=== PATIENT | male | born 1955 | race Caucasian/White ===

== ENCOUNTER 2018-01-17 09:38 | Emergency (ER) | payer BC ==
[~2018-01-17] VITALS: Ht 182.9 cm; Wt 112.8 kg
[~2018-01-17 09:38] MED LIST: LOTREL 5/101 CAPSULE PO; NEXIUM20 MG PO; PERCOCET 5/31 TABLET PO; ZOFRAN ODT4 MG PO
[2018-01-17 10:01] LABS: HEMATOCRIT 48.6 % (38.0-50.0); MCH 27.2 PG (29.0-34.0); MCHC 32.9 G/DL (30.0-36.0); MCV 82.7 FL (86-99); PLATELET COUNT 325 K/uL (156-360); RBC DIS.WIDTH-CV 14.3 % (11.8-14.6); RBC DIS.WIDTH-SD 42.8 % (39-53); RED BLOOD COUNT 5.88 M/uL (4.00-5.50); WHITE BLOOD COUNT 11.7 K/uL (4.1-10.2)
[2018-01-17 10:10] LABS: ALBUMIN 3.8 g/dL (3.2-4.8); CHLORIDE 102 mEq/L (99-109); POTASSIUM 4.7 mEq/L (3.7-5.4); SODIUM 140 mEq/L (136-147)
[2018-01-17 10:12] LABS: GLUCOSE 110 mg/dL (70-99)
[2018-01-17 10:14] LABS: TOTAL BILIRUBIN 0.7 mg/dL (0.0-1.0)
[2018-01-17 10:16] LABS: ALKALINE PHOSPHATASE 72 IU/L (3-129); CREATININE 1.4 mg/dL (0.6-1.3); GFR ESTIMATE (CALCULATED) 55 mL/min/ (58.99-99999)
[2018-01-17 10:17] LABS: UREA NITROGEN (BUN) 18 mg/dL (9-23)
[2018-01-17 10:18] LABS: AST (GOT) 18 IU/L (2-34)
[2018-01-17 10:19] LABS: ALT (GPT) 24 IU/L (3-49)
[2018-01-17 11:37] LABS: APPEARANCE CLOUDY ((CLEAR)); BILIRUBIN NEGATIVE; BLOOD NEGATIVE; COLOR AMBER ((YELLOW)); GLUCOSE (STRIP) NEGATIVE; KETONES NEGATIVE; LEUKOCYTES NEGATIVE; NITRITE NEGATIVE; PROTEIN (STRIP) 100; SPECIFIC GRAVITY 1.033 (1.000-1.030)
[2018-01-17 11:42] LABS: LIPASE 23 U/L (1.0-51.0)
[2018-01-17 11:47] LABS: TROP-I INTERPRETATION NEGATIVE; TROPONIN-I < 0.01 ng/mL (0.0-0.30)
[2018-01-17 12:00] LABS: EPITHELIAL CELLS RARE /HPF; MUCUS NONE SEEN /LPF; RED BLOOD CELLS NONE SEEN /HPF (0-5); WHITE BLOOD CELLS NONE SEEN /HPF (0-5)
[2018-01-17 12:01] LABS: BACTERIA RARE /HPF; UCUL ADDED? NO
[2018-01-17 15:55] VITALS: BP 127/92
== END 2018-01-17 15:58 | disposition home or self-care (01) ==
LOC: EME 09:38
DX: C22.9 Malignant neoplasm of liver, not specified as primary or secondary (principal); C78.6 Secondary malignant neoplasm of retroperitoneum and peritoneum; K76.9 Liver disease, unspecified; N40.0 Benign prostatic hyperplasia without lower urinary tract symptoms; R18.8 Other ascites; K21.9 Gastro-esophageal reflux disease without esophagitis; I10 Essential (primary) hypertension; F17.200 Nicotine dependence, unspecified, uncomplicated
CPT/HCPCS: 71046; 74177; 80053; 81003; 83605; 83690; 84484; 85027; 93005; 99281; 99285

== ENCOUNTER 2018-01-20 22:46 | Inpatient (IN) | payer BC ==
[~2018-01-20] VITALS: Ht 182.9 cm; Wt 114.2 kg
[2018-01-20 23:06] LABS: HEMOGLOBIN 16.6 G/DL (12.5-16.6); MCH 27.3 PG (29.0-34.0); MCHC 33.9 G/DL (30.0-36.0); MCV 80.6 FL (86-99); PLATELET COUNT 421 K/uL (156-360); RBC DIS.WIDTH-CV 14.1 % (11.8-14.6); RBC DIS.WIDTH-SD 40.9 % (39-53); RED BLOOD COUNT 6.08 M/uL (4.00-5.50); WHITE BLOOD COUNT 14.8 K/uL (4.1-10.2)
[2018-01-20 23:31] LABS: ALBUMIN 3.6 g/dL (3.2-4.8); CHLORIDE 101 mEq/L (99-109); SODIUM 139 mEq/L (136-147)
[2018-01-20 23:33] LABS: GLUCOSE 129 mg/dL (70-99)
[2018-01-20 23:35] LABS: TOTAL BILIRUBIN 0.8 mg/dL (0.0-1.0)
[2018-01-20 23:37] LABS: ALKALINE PHOSPHATASE 79 IU/L (3-129); CREATININE 1.1 mg/dL (0.6-1.3); GFR ESTIMATE (CALCULATED) > 59 mL/min/ (58.99-99999)
[2018-01-20 23:38] LABS: UREA NITROGEN (BUN) 16 mg/dL (9-23)
[2018-01-20 23:39] LABS: AST (GOT) 31 IU/L (2-34)
[2018-01-20 23:40] LABS: ALT (GPT) 33 IU/L (3-49)
[2018-01-21] VITALS (7 sets, daily range): BP systolic 124–144; BP diastolic 77–93
[2018-01-21 08:14] LABS: HEMATOCRIT 45.7 % (38.0-50.0); MCH 26.9 PG (29.0-34.0); MCHC 32.8 G/DL (30.0-36.0); MCV 81.9 FL (86-99); PLATELET COUNT 373 K/uL (156-360); RBC DIS.WIDTH-CV 14.3 % (11.8-14.6); RBC DIS.WIDTH-SD 42.6 % (39-53); RED BLOOD COUNT 5.58 M/uL (4.00-5.50); WHITE BLOOD COUNT 12.3 K/uL (4.1-10.2)
[2018-01-22 06:27] LABS: BASOPHIL (%) 0.5 % (0-1); BASOPHIL COUNT 0.1 K/uL (0-0.1); EOSINOPHIL (%) 0.7 % (0-5); EOSINOPHIL COUNT 0.1 K/uL (0-0.3); HEMOGLOBIN 14.7 G/DL (12.5-16.6); IMMATURE GRANULOCYTE (%) 0.8 % (0.0-0.7); LYMPHOCYTE COUNT 0.8 K/uL (1.0-2.8); MCH 27.3 PG (29.0-34.0); MCHC 33.4 G/DL (30.0-36.0); MCV 81.6 FL (86-99); MONOCYTE (%) 9.2 % (3-12); NEUTROPHIL (%) 81.8 % (45-76); NEUTROPHIL COUNT 9.2 K/uL (1.8-6.4); PLATELET COUNT 352 K/uL (156-360); RBC DIS.WIDTH-CV 14.3 % (11.8-14.6); RBC DIS.WIDTH-SD 41.5 % (39-53); RED BLOOD COUNT 5.39 M/uL (4.00-5.50); WHITE BLOOD COUNT 11.2 K/uL (4.1-10.2)
[2018-01-22 06:34] LABS: INTER. NORMALIZED RATIO 1.2
[2018-01-22 06:37] LABS: PTT 27.8 SEC (25-37)
[2018-01-22 06:56] LABS: CHLORIDE 101 MEQ/L (99-109); CREATININE 0.9 MG/DL (0.6-1.3); GFR ESTIMATE (CALCULATED) > 59 mL/min/ (58.99-99999); GLUCOSE 113 mg/dL (70-99); POTASSIUM 4.2 MEQ/L (3.7-5.4); SODIUM 137 MEQ/L (136-147); UREA NITROGEN (BUN) 16 mg/dL (9-23)
[2018-01-22 07:55] VITALS: BP 136/80
[2018-01-22 10:39] LABS: TYPE OF FLUID PARACENTESIS
[2018-01-22 11:11] LABS: APPEARANCE SL. HAZY-YELLOW; BODY FLUID RBC'S 4000 /MM^3 (0-100); BODY FLUID WBC'S 1388 /MM^3 (0-500)
[2018-01-22 11:25] LABS: BODY FLUID GLUCOSE 83 MG/DL; BODY FLUID LDH 725 IU/L
[2018-01-22 12:06] LABS: BODY FLUID EOSINOPHILS 0 % (0-25); MONONUCLEAR WBC'S 82 %; POLYNUCLEAR WBC'S 18 % (0-25)
[2018-01-22 13:23] VITALS: BP 125/63
[2018-01-22 23:12] VITALS: BP 138/79
[2018-01-23 07:10] VITALS: BP 120/82
[2018-01-23 07:12] VITALS: BP 120/82
[2018-01-23 11:05] VITALS: BP 120/74
[2018-01-23] MEDS ORDERED: Chronulac,Cephulac,E PO (12:10)
[2018-01-23 15:45] VITALS: BP 123/82
== END 2018-01-23 17:30 | disposition home health service (06) | DRG 436 ==
LOC: EME 22:46 → EDOF 01-21 01:01 → 5EAST 01-21 01:01 → ENRESERV 01-21 01:04 → 5EAST 01-21 02:37
PROVIDERS: Hospitalist; Internal Medicine
DX: C22.9 Malignant neoplasm of liver, not specified as primary or secondary (principal); C78.6 Secondary malignant neoplasm of retroperitoneum and peritoneum; R18.0 Malignant ascites; K59.01 Slow transit constipation; E88.09 Other disorders of plasma-protein metabolism, not elsewhere classified; E86.0 Dehydration; I10 Essential (primary) hypertension; F17.290 Nicotine dependence, other tobacco product, uncomplicated; Z90.49 Acquired absence of other specified parts of digestive tract; Z80.1 Family history of malignant neoplasm of trachea, bronchus and lung; Z80.3 Family history of malignant neoplasm of breast; Z80.42 Family history of malignant neoplasm of prostate
CPT/HCPCS: 49083; 70450; 71250; 77012; 80048; 80053; 81003; 82040; 82105 90; 82140; 82378; 82945; 82948; 83615 91; 84153; 84157; 85025; 85027; 85610; 85730; 86301 90; 86304; 87070; 87075; 87205; 88108; 88305; 88307; 88341 TC; 88342 TC; 89051; 99281; 99284; J1644; J2060; J2270; J7030; P9047

== ENCOUNTER → 2018-01-30 | Outpatient (CLI) | payer BC ==
[~2018-01-30] MED LIST changes: +COMPAZINE10 MG PO; +Chronulac,Cephulac,E PO; +SENNA8.6 MG PO; +ZOFRAN ODT8 MG PO
== END | disposition home or self-care (01) ==
LOC: RAD 12:41
PROC: 0W9G3ZZ Drainage of Peritoneal Cavity, Percutaneous Approach (ICD-10-PCS; principal; 2018-01-30)
DX: R18.8 Other ascites (principal)
CPT/HCPCS: 49083

== ENCOUNTER 2018-02-03 10:43 | Inpatient (IN) | payer BC ==
[~2018-02-03] VITALS: Ht 182.9 cm; Wt 112.9 kg
[~2018-02-03 10:43] MED LIST changes: -COMPAZINE10 MG PO; -SENNA8.6 MG PO; -ZOFRAN ODT8 MG PO
[2018-02-03 11:22] LABS: BASOPHIL (%) 0.1 % (0-1); EOSINOPHIL (%) 0.1 % (0-5); HEMATOCRIT 43.2 % (38.0-50.0); HEMOGLOBIN 15.3 G/DL (12.5-16.6); LYMPHOCYTE (%) 1.3 % (15-42); LYMPHOCYTE COUNT 0.2 K/uL (1.0-2.8); MCH 27.2 PG (29.0-34.0); MCHC 35.4 G/DL (30.0-36.0); MONOCYTE (%) 0.3 % (3-12); MONOCYTE COUNT 0.1 K/uL (0-0.8); NEUTROPHIL (%) 96.2 % (45-76); NEUTROPHIL COUNT 16.5 K/uL (1.8-6.4); PLATELET COUNT 417 K/uL (156-360); RBC DIS.WIDTH-CV 14.1 % (11.8-14.6); RBC DIS.WIDTH-SD 38.9 % (39-53); RED BLOOD COUNT 5.62 M/uL (4.00-5.50); WHITE BLOOD COUNT 17.2 K/uL (4.1-10.2)
[2018-02-03 11:26] LABS: INTER. NORMALIZED RATIO 1.2
[2018-02-03 11:28] LABS: ALBUMIN 2.7 g/dL (3.2-4.8)
[2018-02-03 11:29] LABS: PTT 27.8 SEC (25-37)
[2018-02-03 11:30] LABS: GLUCOSE 129 mg/dL (70-99)
[2018-02-03 11:32] LABS: TOTAL BILIRUBIN 1.3 mg/dL (0.0-1.0)
[2018-02-03 11:34] LABS: ALKALINE PHOSPHATASE 196 IU/L (3-129); CREATININE 4.1 mg/dL (0.6-1.3); GFR ESTIMATE (CALCULATED) 16 mL/min/ (58.99-99999)
[2018-02-03 11:35] LABS: CHLORIDE 85 mEq/L (99-109)
[2018-02-03 11:36] LABS: AST (GOT) 63 IU/L (2-34)
[2018-02-03 11:37] LABS: ALT (GPT) 134 IU/L (3-49); LIPASE 15 U/L (1.0-51.0); POTASSIUM 7.1 mEq/L (3.7-5.4); SODIUM 119 mEq/L (136-147); UREA NITROGEN (BUN) 110 mg/dL (9-23)
[2018-02-03 11:46] LABS: MCV 76.9 FL (86-99)
[2018-02-03 12:12] LABS: CHLORIDE 86 mEq/L (99-109)
[2018-02-03 12:13] LABS: GLUCOSE 125 mg/dL (70-99)
[2018-02-03 12:17] LABS: CREATININE 4.1 mg/dL (0.6-1.3); GFR ESTIMATE (CALCULATED) 16 mL/min/ (58.99-99999)
[2018-02-03 12:26] LABS: SODIUM 118 mEq/L (136-147); UREA NITROGEN (BUN) 110 mg/dL (9-23)
[2018-02-03 12:57] LABS: BASE EXCESS -7.4 mEq/L (-3 to +3); BICARBONATE 15.7 mEq/L (22-26); CARBOXY HGB 1.2 % (0-5); METHEMOGLOBIN 1.2 % (0-1.5); PCO2 26 mm Hg (35-45); PO2 82 mm Hg (80-100); pH 7.39 (7.35-7.45)
[2018-02-03 12:58] LABS: COMMENTS - BLOOD GASES C+; FI02 21 %; SITE LR
[2018-02-03] MEDS ORDERED: COMPAZINE10 MG PO (14:01)
[2018-02-03] MEDS ORDERED: ZOFRAN ODT8 MG PO (14:24)
[2018-02-03] MEDS ORDERED: SENNA8.6 MG PO (14:25)
[2018-02-03 16:30] LABS: CHLORIDE 88 mEq/L (99-109); SODIUM 120 mEq/L (136-147)
[2018-02-03 16:31] LABS: GLUCOSE 111 mg/dL (70-99)
[2018-02-03 16:35] LABS: CREATININE 4.1 mg/dL (0.6-1.3); GFR ESTIMATE (CALCULATED) 16 mL/min/ (58.99-99999)
[2018-02-03 16:37] LABS: POTASSIUM 6.5 mEq/L (3.7-5.4); UREA NITROGEN (BUN) 109 mg/dL (9-23)
[2018-02-03 16:49] LABS: PHOSPHORUS 9.6 mg/dL (2.5-4.9)
[2018-02-03 16:51] LABS: URIC ACID 17.1 mg/dL (3.1-9.2)
[2018-02-03 17:00] VITALS: BP 128/71
[2018-02-03 20:00] VITALS: BP 125/70
[2018-02-03 21:37] LABS: CHLORIDE 85 MEQ/L (99-109); CREATININE 3.9 MG/DL (0.6-1.3); GFR ESTIMATE (CALCULATED) 17 mL/min/ (58.99-99999); GLUCOSE 107 mg/dL (70-99); POTASSIUM 5.9 MEQ/L (3.7-5.4)
[2018-02-03 22:16] LABS: SODIUM 119 MEQ/L (136-147); UREA NITROGEN (BUN) 108 mg/dL (9-23)
[2018-02-03 23:00] VITALS: BP 122/70
[2018-02-03 23:55] LABS: APPEARANCE SL.HAZY ((CLEAR)); BILIRUBIN NEGATIVE; BLOOD NEGATIVE; COLOR AMBER ((YELLOW)); GLUCOSE (STRIP) NEGATIVE; KETONES NEGATIVE; LEUKOCYTES NEGATIVE; NITRITE NEGATIVE; PROTEIN (STRIP) NEGATIVE; SPECIFIC GRAVITY 1.014 (1.000-1.030)
[2018-02-04 00:28] LABS: RED BLOOD CELLS NONE SEEN /HPF (0-5); WHITE BLOOD CELLS 0-5 /HPF (0-5)
[2018-02-04 00:29] LABS: BACTERIA 2+ /HPF; EPITHELIAL CELLS 1+ /HPF; MUCUS 1+ /LPF; UCUL ADDED? YES
[2018-02-04 01:38] LABS: UR CREATININE CONCENTRATION 127.5 MG/DL
[2018-02-04 04:00] VITALS: BP 123/77
[2018-02-04 05:42] LABS: ALBUMIN 2.8 G/DL (3.2-4.8); CHLORIDE 85 MEQ/L (99-109); CREATININE 4.1 MG/DL (0.6-1.3); GFR ESTIMATE (CALCULATED) 16 mL/min/ (58.99-99999); GLUCOSE 113 mg/dL (70-99); PHOSPHORUS 7.9 mg/dL (2.5-4.9); POTASSIUM 5.4 MEQ/L (3.7-5.4); SODIUM 120 MEQ/L (136-147)
[2018-02-04 06:01] LABS: UREA NITROGEN (BUN) 109 mg/dL (9-23)
[2018-02-04 06:36] LABS: MCH 26.3 PG (29.0-34.0); MCHC 34.4 G/DL (30.0-36.0); MCV 76.4 FL (86-99); PLAT.SUFFICIENCY ADEQUATE; PLATELET CLUMPS PRESENT - PLATELET COUNT APPEARS ADQ.; PLATELET COUNT UNABLE TO REPORT K/uL (156-360); RBC DIS.WIDTH-SD 38.9 % (39-53); RED BLOOD COUNT 4.71 M/uL (4.00-5.50)
[2018-02-04 06:46] LABS: HEMOGLOBIN 12.4 G/DL (12.5-16.6)
[2018-02-04 07:25] VITALS: BP 120/75
[2018-02-04 11:30] VITALS: BP 117/72
[2018-02-04 15:00] VITALS: BP 139/81
[2018-02-04 16:35] LABS: TYPE OF FLUID PERITONEAL
[2018-02-04 16:48] LABS: APPEARANCE HAZY-YELLOW; BODY FLUID RBC'S 8000 /MM^3 (0-100); BODY FLUID WBC'S 535 /MM^3 (0-500)
[2018-02-04 17:43] LABS: CHLORIDE 85 MEQ/L (99-109); CREATININE 3.8 MG/DL (0.6-1.3); GFR ESTIMATE (CALCULATED) 17 mL/min/ (58.99-99999); GLUCOSE 102 mg/dL (70-99); PHOSPHORUS 7.7 mg/dL (2.5-4.9); POTASSIUM 5.2 MEQ/L (3.7-5.4); SODIUM 122 MEQ/L (136-147)
[2018-02-04 17:44] LABS: BODY FLUID EOSINOPHILS 0 % (0-25); MONONUCLEAR WBC'S 22 %; POLYNUCLEAR WBC'S 78 % (0-25)
[2018-02-04 17:44] LABS: UREA NITROGEN (BUN) 112 mg/dL (9-23)
[2018-02-04 19:00] VITALS: BP 119/67
[2018-02-04 23:00] VITALS: BP 128/73
[2018-02-05 01:06] LABS: CHLORIDE 87 mEq/L (99-109); POTASSIUM 4.7 mEq/L (3.7-5.4); SODIUM 123 mEq/L (136-147)
[2018-02-05 01:08] LABS: GLUCOSE 100 mg/dL (70-99)
[2018-02-05 01:12] LABS: CREATININE 3.7 mg/dL (0.6-1.3); GFR ESTIMATE (CALCULATED) 18 mL/min/ (58.99-99999)
[2018-02-05 01:13] LABS: UREA NITROGEN (BUN) 115 mg/dL (9-23)
[2018-02-05 03:30] VITALS: BP 130/76
[2018-02-05 07:48] LABS: HEMATOCRIT 34.1 % (38.0-50.0); HEMOGLOBIN 11.5 G/DL (12.5-16.6); MCH 26.1 PG (29.0-34.0); MCHC 33.7 G/DL (30.0-36.0); MCV 77.5 FL (86-99); RBC DIS.WIDTH-SD 39.8 % (39-53)
[2018-02-05 07:53] LABS: PLATELET COUNT 159 K/uL (156-360)
[2018-02-05 08:02] VITALS: BP 118/74
[2018-02-05 08:27] LABS: ALBUMIN 2.9 G/DL (3.2-4.8); CHLORIDE 87 MEQ/L (99-109); CREATININE 3.1 MG/DL (0.6-1.3); GFR ESTIMATE (CALCULATED) 22 mL/min/ (58.99-99999); GLUCOSE 103 mg/dL (70-99); PHOSPHORUS 6.1 mg/dL (2.5-4.9); POTASSIUM 4.6 MEQ/L (3.7-5.4); SODIUM 126 MEQ/L (136-147); URIC ACID 14.4 mg/dL (3.1-9.2)
[2018-02-05 08:37] LABS: UREA NITROGEN (BUN) 108 mg/dL (9-23)
[2018-02-05 11:50] VITALS: BP 118/73
[2018-02-05 13:26] LABS: CHLORIDE 88 MEQ/L (99-109); CREATININE 2.7 MG/DL (0.6-1.3); GFR ESTIMATE (CALCULATED) 26 mL/min/ (58.99-99999); GLUCOSE 114 mg/dL (70-99); POTASSIUM 4.2 MEQ/L (3.7-5.4); SODIUM 124 MEQ/L (136-147); UREA NITROGEN (BUN) 103 mg/dL (9-23)
[2018-02-05 14:58] VITALS: BP 127/76
[2018-02-05 19:02] LABS: CHLORIDE 87 MEQ/L (99-109); CREATININE 2.8 MG/DL (0.6-1.3); GFR ESTIMATE (CALCULATED) 25 mL/min/ (58.99-99999); GLUCOSE 123 mg/dL (70-99); POTASSIUM 4.2 MEQ/L (3.7-5.4); SODIUM 124 MEQ/L (136-147); UREA NITROGEN (BUN) 97 mg/dL (9-23)
[2018-02-05 19:11] VITALS: BP 119/74
[2018-02-05 20:04] LABS: LACTATE DEHYDROGENASE 414 IU/L (20-246); MAGNESIUM 2.9 mg/dl (1.3-2.7); PHOSPHORUS 5.2 mg/dL (2.5-4.9)
[2018-02-06 00:05] VITALS: BP 112/71
[2018-02-06 00:44] LABS: CHLORIDE 90 mEq/L (99-109); POTASSIUM 4.2 mEq/L (3.7-5.4); SODIUM 127 mEq/L (136-147)
[2018-02-06 00:45] LABS: GLUCOSE 112 mg/dL (70-99)
[2018-02-06 00:49] LABS: CREATININE 2.5 mg/dL (0.6-1.3); GFR ESTIMATE (CALCULATED) 28 mL/min/ (58.99-99999)
[2018-02-06 00:55] LABS: UREA NITROGEN (BUN) 103 mg/dL (9-23); URIC ACID 5.3 mg/dL (3.1-9.2)
[2018-02-06 04:09] VITALS: BP 125/79
[2018-02-06 06:05] LABS: HEMATOCRIT 33.9 % (38.0-50.0); HEMOGLOBIN 11.7 G/DL (12.5-16.6); MCHC 34.5 G/DL (30.0-36.0); MCV 78.3 FL (86-99); PLATELET COUNT 116 K/uL (156-360); RBC DIS.WIDTH-SD 39.9 % (39-53); RED BLOOD COUNT 4.33 M/uL (4.00-5.50); WHITE BLOOD COUNT 3.2 K/uL (4.1-10.2)
[2018-02-06 06:46] LABS: CHLORIDE 90 MEQ/L (99-109); CREATININE 2.3 MG/DL (0.6-1.3); GFR ESTIMATE (CALCULATED) 31 mL/min/ (58.99-99999); GLUCOSE 124 mg/dL (70-99); PHOSPHORUS 4.5 mg/dL (2.5-4.9); POTASSIUM 4.1 MEQ/L (3.7-5.4); SODIUM 125 MEQ/L (136-147); UREA NITROGEN (BUN) 94 mg/dL (9-23)
[2018-02-06 06:49] LABS: URIC ACID 3.6 mg/dL (3.1-9.2)
[2018-02-06 07:00] VITALS: BP 132/80
[2018-02-06 11:00] VITALS: BP 128/77
[2018-02-06 13:25] LABS: CHLORIDE 90 MEQ/L (99-109); GFR ESTIMATE (CALCULATED) 36 mL/min/ (58.99-99999); GLUCOSE 125 mg/dL (70-99); POTASSIUM 4.2 MEQ/L (3.7-5.4); SODIUM 126 MEQ/L (136-147); UREA NITROGEN (BUN) 89 mg/dL (9-23)
[2018-02-06 15:15] VITALS: BP 123/77
[2018-02-06 16:16] LABS: TYPE OF FLUID PERITONEAL
[2018-02-06 16:53] LABS: APPEARANCE SL. HAZY-YELLOW; BODY FLUID RBC'S 6000 /MM^3 (0-100); BODY FLUID WBC'S 164 /MM^3 (0-500)
[2018-02-06 17:27] LABS: BODY FLUID EOSINOPHILS 0 % (0-25); MONONUCLEAR WBC'S 20 %; POLYNUCLEAR WBC'S 80 % (0-25)
[2018-02-06 19:28] VITALS: BP 121/73
[2018-02-06 20:32] LABS: CHLORIDE 90 MEQ/L (99-109); CREATININE 1.9 MG/DL (0.6-1.3); GFR ESTIMATE (CALCULATED) 39 mL/min/ (58.99-99999); GLUCOSE 115 mg/dL (70-99); SODIUM 127 MEQ/L (136-147); UREA NITROGEN (BUN) 83 mg/dL (9-23)
[2018-02-06 21:51] LABS: MAGNESIUM 2.8 mg/dl (1.3-2.7)
[2018-02-07] VITALS (7 sets, daily range): BP systolic 116–130; BP diastolic 70–90
[2018-02-07 00:49] LABS: ALBUMIN 3.3 g/dL (3.2-4.8); CHLORIDE 93 mEq/L (99-109); POTASSIUM 4.4 mEq/L (3.7-5.4); SODIUM 130 mEq/L (136-147)
[2018-02-07 00:52] LABS: GLUCOSE 115 mg/dL (70-99); TOTAL PROTEIN 5.5 g/dL (6.4-8.3)
[2018-02-07 00:55] LABS: ALKALINE PHOSPHATASE 229 IU/L (3-129)
[2018-02-07 00:56] LABS: GFR ESTIMATE (CALCULATED) 36 mL/min/ (58.99-99999)
[2018-02-07 00:57] LABS: DIRECT BILIRUBIN 1.7 mg/dL (0.0-0.3); UREA NITROGEN (BUN) 92 mg/dL (9-23)
[2018-02-07 00:59] LABS: ALT (GPT) 219 IU/L (3-49)
[2018-02-07 01:02] LABS: AST (GOT) 241 IU/L (2-34); PHOSPHORUS 4.4 mg/dL (2.5-4.9); TOTAL BILIRUBIN 2.3 mg/dL (0.0-1.0)
[2018-02-07 01:04] LABS: TROP-I INTERPRETATION NEGATIVE; TROPONIN-I < 0.01 ng/mL (0.0-0.30)
[2018-02-07 02:17] LABS: MAGNESIUM 2.5 mg/dL (1.3-2.7)
[2018-02-07 06:13] LABS: HEMATOCRIT 37.2 % (38.0-50.0); HEMOGLOBIN 12.8 G/DL (12.5-16.6); MCH 27.1 PG (29.0-34.0); MCHC 34.4 G/DL (30.0-36.0); MCV 78.8 FL (86-99); NRBC (%) 0.4 /100 WBC (0-0); PLATELET COUNT 104 K/uL (156-360); RBC DIS.WIDTH-CV 14.2 % (11.8-14.6); RBC DIS.WIDTH-SD 40.5 % (39-53); RED BLOOD COUNT 4.72 M/uL (4.00-5.50); WHITE BLOOD COUNT 8.5 K/uL (4.1-10.2)
[2018-02-07 07:14] LABS: ALBUMIN 2.8 G/DL (3.2-4.8); CHLORIDE 92 MEQ/L (99-109); CREATININE 2.1 MG/DL (0.6-1.3); GFR ESTIMATE (CALCULATED) 34 mL/min/ (58.99-99999); GLUCOSE 111 mg/dL (70-99); PHOSPHORUS 4.5 mg/dL (2.5-4.9); POTASSIUM 4.3 MEQ/L (3.7-5.4); SODIUM 131 MEQ/L (136-147); UREA NITROGEN (BUN) 86 mg/dL (9-23)
[2018-02-07 09:07] LABS: MAGNESIUM 2.6 mg/dl (1.3-2.7); URIC ACID 2.9 mg/dL (3.1-9.2)
[2018-02-07 17:07] LABS: CHLORIDE 93 MEQ/L (99-109); CREATININE 2.2 MG/DL (0.6-1.3); GFR ESTIMATE (CALCULATED) 33 mL/min/ (58.99-99999); GLUCOSE 116 mg/dL (70-99); MAGNESIUM 2.5 mg/dl (1.3-2.7); PHOSPHORUS 4.9 mg/dL (2.5-4.9); POTASSIUM 4.9 MEQ/L (3.7-5.4); SODIUM 128 MEQ/L (136-147); UREA NITROGEN (BUN) 92 mg/dL (9-23)
[2018-02-07 21:02] LABS: CHLORIDE 92 MEQ/L (99-109); CREATININE 2.2 MG/DL (0.6-1.3); GFR ESTIMATE (CALCULATED) 33 mL/min/ (58.99-99999); GLUCOSE 110 mg/dL (70-99); LACTATE DEHYDROGENASE 420 IU/L (20-246); MAGNESIUM 2.4 mg/dl (1.3-2.7); PHOSPHORUS 4.8 mg/dL (2.5-4.9); POTASSIUM 4.6 MEQ/L (3.7-5.4); SODIUM 126 MEQ/L (136-147); UREA NITROGEN (BUN) 96 mg/dL (9-23)
[2018-02-08 01:07] LABS: CHLORIDE 91 mEq/L (99-109); POTASSIUM 4.7 mEq/L (3.7-5.4); SODIUM 129 mEq/L (136-147)
[2018-02-08 01:09] LABS: GLUCOSE 112 mg/dL (70-99)
[2018-02-08 01:13] LABS: CREATININE 2.3 mg/dL (0.6-1.3); GFR ESTIMATE (CALCULATED) 31 mL/min/ (58.99-99999)
[2018-02-08 01:14] LABS: UREA NITROGEN (BUN) 103 mg/dL (9-23)
[2018-02-08 06:11] LABS: HEMATOCRIT 34.4 % (38.0-50.0); HEMOGLOBIN 11.8 G/DL (12.5-16.6); MCH 26.8 PG (29.0-34.0); MCHC 34.3 G/DL (30.0-36.0); MCV 78.2 FL (86-99); NRBC (%) 1.2 /100 WBC (0-0); PLATELET COUNT 111 K/uL (156-360); RBC DIS.WIDTH-CV 14.5 % (11.8-14.6); RBC DIS.WIDTH-SD 40.8 % (39-53); WHITE BLOOD COUNT 9.1 K/uL (4.1-10.2)
[2018-02-08 06:39] LABS: ALBUMIN 2.7 G/DL (3.2-4.8); CHLORIDE 90 MEQ/L (99-109); CREATININE 2.4 MG/DL (0.6-1.3); GFR ESTIMATE (CALCULATED) 29 mL/min/ (58.99-99999); GLUCOSE 108 mg/dL (70-99); PHOSPHORUS 4.9 mg/dL (2.5-4.9); POTASSIUM 4.4 MEQ/L (3.7-5.4); SODIUM 124 MEQ/L (136-147); UREA NITROGEN (BUN) 100 mg/dL (9-23)
[2018-02-08 06:42] LABS: URIC ACID 4.5 mg/dL (3.1-9.2)
[2018-02-08 07:32] VITALS: BP 121/86
[2018-02-08] MEDS ORDERED: TRANSDERM-SCOP1 EACH TD (07:50)
[2018-02-08] MEDS ORDERED: MAG-AL PLUS SUS30 ML PO (07:50)
[2018-02-08] MEDS ORDERED: LEVAQUIN750 MG PO (07:50)
[2018-02-08] MEDS ORDERED: ATIVAN INTE2 MG/1 ML PO (07:50)
[2018-02-08] MEDS ORDERED: HYOSCYAMINE0.125 M2 PO (07:50)
[2018-02-08] MEDS ORDERED: MORPHINE CON20 MG/M1 PO (07:50)
[2018-02-08 11:05] VITALS: BP 130/86
== END 2018-02-08 13:42 | disposition hospice, home (50) | DRG 682 ==
LOC: EME 10:43 → 4EAST 14:05 → EDOF 14:05 → ENRESERV 14:09 → 4EAST 16:58 → ENRESERV 02-05 09:55 → 5EAST 02-05 14:51 → ENPENDDIS 02-08 → 5EAST 02-08 13:42
PROVIDERS: Emergency Medicine; Hospitalist; Internal Medicine; Internal Medicine Medical Oncology
PROC: 0W9G3ZZ Drainage of Peritoneal Cavity, Percutaneous Approach (ICD-10-PCS; principal; 2018-02-04)
PROC: 0W9G3ZZ Drainage of Peritoneal Cavity, Percutaneous Approach (ICD-10-PCS; 2018-02-06)
DX: E88.3 Tumor lysis syndrome (principal); T45.1X5A Adverse effect of antineoplastic and immunosuppressive drugs, initial encounter; Z66 Do not resuscitate; N17.9 Acute kidney failure, unspecified; E87.5 Hyperkalemia; E87.1 Hypo-osmolality and hyponatremia; E87.2 Acidosis; E83.39 Other disorders of phosphorus metabolism; E83.51 Hypocalcemia; E86.0 Dehydration; D61.810 Antineoplastic chemotherapy induced pancytopenia; C22.1 Intrahepatic bile duct carcinoma; C78.6 Secondary malignant neoplasm of retroperitoneum and peritoneum; R18.0 Malignant ascites; E79.0 Hyperuricemia without signs of inflammatory arthritis and tophaceous disease; K21.9 Gastro-esophageal reflux disease without esophagitis; I10 Essential (primary) hypertension; E66.9 Obesity, unspecified; G47.00 Insomnia, unspecified; Z68.36 Body mass index [BMI] 36.0-36.9, adult; Z87.891 Personal history of nicotine dependence
CPT/HCPCS: 36600; 49083; 71045; 74176; 80048 91; 80053; 80069; 80076; 81003; 82306; 82330; 82436; 82570; 82803; 83605; 83615; 83690; 83735; 83935; 84100; 84132 91; 84156; 84300; 84484; 84540; 84550; 85025; 85027; 85610; 85730; 87040; 87070; 87075; 87077; 87086; 87205; 89051; 93005; 94799; 99281; 99285; A6214; J0610; J0696; J1100; J1170; J1644; J2405; J2783; J7030; J7050; J7120; P9045; P9047